=== PATIENT | female | born 1930 | race Caucasian/White ===

== ENCOUNTER → 2019-01-30 | Outpatient (CLI) | payer MEDICARE, BC ==
--- NOTE | 2019-01-30 12:24 | CONS ---
Assessment/Plan Assessment/Plan Hospital Course (Demo Recall) 88-year-old female presents to clinic today with greater trochanteric bursitis and IT band tendinitis. This is likely secondary to her lumbar radiculopathy and degenerative disc disease. She previously had significant relief with an epidural spine injection. She does have subtle eccentric wear on her left total hip arthroplasty. This would be expected given the prosthesis is 19 years old. At this time there is no strong indication to undergo revision. However, this will need to be followed closely clinically and radiographically. Plan: Epidural spine injection by patient's previous physician Physical therapy for GT bursitis and IT band tendinitis and degenerative disc disease. If the epidural spine injection does not significantly help her bursitis pain I did recommend an NSAID regiment with meloxicam. Follow-up in 6 months for exam and x-rays to evaluate for further wear. If stable likely spread out visits to 1 year. Consultation Date/Type/Reason Admit Date/Time Date of Consultation: January 30, 2019 Reason for Consultation Left hip pain Date/Time of Note DATE: 01/30/19 TIME: 11:30 Hx of Present Illness This is a very active 88-year-old female presenting to the clinic today for 7 days of left lateral hip pain and buttock pain. She has history of a left total hip arthroplasty with Dr. Khalil in 1999. She was last seen in 2014 for very similar symptoms. These were successfully treated with an epidural injection. Today she denies any groin pain. She does have pain that radiates down to her knee as well as past the knee. The pain does not wake her up at night. The pain is rated 34 out of 10. The pain is sharp and short-lived. Denies any milana numbness and tingling. She has taken ibuprofen one time with no relief. She does limp secondary to this. She does use a banister for stairs. She does not use any gait aids. She is also status post a right total hip arthroplasty 2000 and has no issues with that. Patient denies fever, chills, shortness of breath, chest pain, nausea/vomiting, constipation, diarrhea, numbness, and tingling. Past Medical History Breast cancer status post mastectomy in 2009 Past Surgical History Left total hip arthroplasty [address] Khalil Right total hip arthroplasty [address] Khalil Mastectomy 2010 Social History Alcohol Use: occasionally Smoking Status: Never smoker Drug Use: none Exam/Review of Systems Exam Vitals Weight: 125 pounds Height: 5 foot 3 and Temperature: 90.3 Heart Rate: 69 Blood Pressure: 127/69 Respiratory Rate: 12 Exam General: Alert, oriented x3. No Acute Distress. Heart: Regular rate and rhythm. Lungs: No respiratory distress. No accessory muscle use. MUSCULOSKELETAL: Left lower Extremity: Incision well-healed. No skin breakdown, no surrounding erythema. Well developed female in no apparent distress. Gait demonstrates a mild Trendelenburg with no antalgic components and no short leg component. Standing, the pelvis is level and supine there is no true leg length discrepancy. Significant tenderness over trochanteric bursa and IT band. ----- Range of motion: Flexion: 130 Extension: 0 Internal rotation: 30 External rotation: 60 Abduction: 60 Adduction: 10 ----- Sitting there is no pelvic obliquity. Pain at the extremes of motion of the affected hip. Skin was intact throughout both lower extremities. Sensation intact to light touch in a sural, saphenous, deep peroneal, superficial peroneal, medial and lateral plantar nerve distribution. Neurovascular exam showed 4/5 strength for abductors, 5/5 strength in the quads, EHL/tibialis anterior/gastroc. Normal and symmetrical pulses were palpated in both the dorsalis pedis and posterior tibial arteries. There is no sign of venous stasis. 2+ deep tendon reflexes bilaterally. 2 beat clonus bilaterally. Downgoing Babinski bilaterally. Rises from seated position without difficulty. Gait: Quick pace. Minimal limp. Minimal Trendelenburg. No gait aids. Imaging Imaging Xrays obtained in clinic today and personally reviewed by myself: These were compared to x-rays taken in 2015 AP pelvis and AP/Lat of the left hip demonstrate hip s/p JOHN with hip reduced. Components in good position and alignment. AP pelvis film taken slightly different angle accentuating the anteversion of the left acetabular component. I do not believe there is any change in component position. However there is some subtle eccentric wear of the polyethylene liner. No signs of osteolysis, loosening, component failure, or fracture. No acute complications. ORLANDO MONCADA MD January 30, 2019 11:40
--- NOTE | 2019-02-02 08:28 | RADRPT ---
PROCEDURE: XR pelvis and left hip. CLINICAL INDICATION: PAIN TECHNIQUE: AP pelvis, AP and frog lateral views of the left hip were performed. COMPARISON: [facility] HIP 11/06/2014; [facility] PELVIS 11/06/2014 FINDINGS: Bilateral total hip arthroplasties are stable in appearance. There is no suspicious lucency or findings of hardware failure. No acute fracture or dislocation is seen. The osseous mineralization is decreased. Vascular calcifications are visualized. IMPRESSION: Bilateral total hip arthroplasties without evidence of complication. No acute fracture or dislocation. [facility] Physician Petar Date Time Electronically viewed and signed by Physician Petar on 02/02/2019 08:28 /
== END | disposition home or self-care (01) ==
LOC: HKI 11:27
PROVIDERS: ATTEND Orthopaedic Surgery Adult Reconstructive Orthopaedic Surgery
DX: M25.552 Pain in left hip (principal); M70.62 Trochanteric bursitis, left hip; M76.32 Iliotibial band syndrome, left leg
CPT/HCPCS: 73502; G0463